=== PATIENT | male | born 1955 | race Caucasian/White ===

== ENCOUNTER 2023-08-01 08:12 | Emergency (ER) | payer MEDICARE, SELFPAY ==
[2023-08-01 08:15] VITALS: BP 173/89; PULSE 54; RESP 17; TEMP 36.7; O2SAT 96; BMI 35.3
--- NOTE | 2023-08-01 08:23 | ED_ITS ---
HPI - Abdominal Pain General: Chief Complaint: Abdominal Pain Stated Complaint: abd pain Time Seen by Provider: 08/01/23 08:18 Source: patient Mode of arrival: ambulatory History of Present Illness: 67-year-old male who presents to the emergency room with left lower quadrant abdominal pain has been going on for the last several days. He has been nauseated. At one point he had not been having a bowel movement he took some laxatives had a large bowel movement seem to improve he had some loose stools after that. He has not had any fever sweats or chills no hematochezia. No vomiting or diarrhea. MD elicited complaint: abdominal pain Onset (ago): day(s) (5) Location: LLQ Severity: mild Quality: cramping Radiation: none Exacerbating factors: nothing Relieving factors: nothing Associated Symptoms: Denies anorexia, belching, bloating, change in bowel habits, change in stool character, chills, coffee ground emesis, constipation, GI cramping, diarrhea, dyspepsia, dysuria, excessive flatus, fever(s), heartburn, hematochezia, hematuria, hematemesis, fecal incontinence, loose stools, melena, nausea, poor appetite, syncope and vomiting Review of Systems Const: Denies: fever(s) or chills Card: Denies: chest pain or syncope Resp: Denies: dyspnea GI: Denies: abdominal pain, nausea, vomiting, hematemesis, coffee ground emesis, heartburn, diarrhea, constipation, bloating, GI cramping, belching, excessive flatus, fecal incontinence, change in bowel habits, change in stool character, hematochezia or melena : Denies: dysuria, urinary frequency, urinary urgency or hematuria Musc: Denies: neck pain or back pain Skin/Breast: Denies: rash Physical Exam Const: GENERAL APPEARANCE: cooperative and comfortable ORIENTATION/CONSCIOUSNESS: Yes awake, Yes oriented to person, Yes oriented to place and Yes oriented to time HENMT: COMMON NORMALS: normocephalic, atraumatic and hearing grossly normal bilaterally HEAD & SCALP: normocephalic and atraumatic Resp: COMMON NORMALS: normal respiratory effort, No retractions, No use of accessory muscles and clear to auscultation bilaterally AUSCULTATION: clear to auscultation bilaterally Cardio: COMMON NORMALS: regular rate, regular rhythm and No murmurs present (Cardio) RATE: regular rate RHYTHM: regular rhythm GI: COMMON NORMALS: Soft to palpation and No hepatosplenomegaly present AUSCULTATION: Yes normoactive bowel sounds PALPATION: Yes Soft to palpation, No Tenderness to palpation present (GI), No Guarding due to palpation present (GI) and Yes No hepatosplenomegaly present Extremity: COMMON NORMALS: normal to inspection, capillary refill normal, no clubbing, cyanosis or edema, no calf tenderness and no pedal edema Neuro: SENSORIUM/ORIENTATION: Yes oriented to person, Yes oriented to place and Yes oriented to time Skin: COMMON NORMALS: no rashes or lesions noted GENERAL SKIN EXAM: no rashes or lesions noted Course Vital Signs: Vital signs: Vital Signs Temperature 98.1 F 08/01/23 08:15 Pulse Rate 54 L 08/01/23 08:15 Respiratory Rate 17 08/01/23 08:15 Blood Pressure 173/89 08/01/23 08:15 Pulse Oximetry 96 08/01/23 08:15 MDM - Abdominal Pain Medical Decision Making Initial evaluation suspected diverticulitis however his white count is not significantly elevated and he has notable microscopic hematuria CT renal stone protocol done showed a 4.5 mm stone near the UVJ junction. Discussed with the patient will strain urine start Flomax hydrocodone for pain follow-up with urology return if pain uncontrolled Differential Diagnosis Likely abdominal pain, calculus of kidney, constipation, diverticulitis, gastroenteritis and small bowel obstruction Medical Records I reviewed the patient's medical records. Lab Data I reviewed the patient's lab results. 08/01/23 08:30 08/01/23 08:30 Labs/Radiology: Laboratory Results WBC 7.66 10^3/uL (3.29-11.43) 08/01/23 08:30 RBC 4.57 10^6/uL (3.85-5.65) 08/01/23 08:30 Hgb 14.40 g/dL (11.27-16.99) 08/01/23 08:30 Hct 44.3 % (37-53) 08/01/23 08:30 MCV 96.9 fl (82-101) 08/01/23 08:30 MCH 31.5 pg (27-33) 08/01/23 08:30 MCHC 32.5 g/dL (30-55) 08/01/23 08:30 RDW 13.4 % (12.1-15.1) 08/01/23 08:30 Plt Count 167 10^3/cmm (157-399) 08/01/23 08:30 MPV 10.8 fL (7.4-10.4) H 08/01/23 08:30 Neut % (Auto) 61.4 % 08/01/23 08:30 Lymph % (Auto) 25.3 % 08/01/23 08:30 Wells % (Auto) 10.8 % 08/01/23 08:30 Eos % (Auto) 1.7 % 08/01/23 08:30 Baso % (Auto) 0.5 % 08/01/23 08:30 Neut # (Auto) 4.70 10^3/uL (1.8-7.7) 08/01/23 08:30 Lymph # (Auto) 1.9 10^3/uL (0.8-4.8) 08/01/23 08:30 Wells # (Auto) 0.8 10^3/uL (0.2-0.9) 08/01/23 08:30 Eos # (Auto) 0.1 10^3/uL (0.0-0.8) 08/01/23 08:30 Baso # (Auto) 0.0 10^3/uL (0.0-0.1) 08/01/23 08:30 Nucleated RBC % (auto) 0 % 08/01/23 08:30 Nucleated RBCs # 0.0 /100WBC 08/01/23 08:30 Sodium 140 mmol/L (136-145) 08/01/23 08:30 Potassium 4.4 mmol/L (3.5-5.1) 08/01/23 08:30 Chloride 105 mmol/L (98-107) 08/01/23 08:30 Carbon Dioxide 24 mmol/L (22-29) 08/01/23 08:30 Anion Gap 15.4 (5-19) 08/01/23 08:30 BUN 17 mg/dL (8-23) 08/01/23 08:30 Creatinine 1.4 mg/dL (0.7-1.2) H 08/01/23 08:30 GFR Calculation 50.7 mL/min (90-130) L 08/01/23 08:30 Glucose 110 mg/dL (65-115) 08/01/23 08:30 Calculated Osmolality 292 mOsm/kg (285-295) 08/01/23 08:30 Calcium 9.3 mg/dL (8.5-10.5) 08/01/23 08:30 Total Bilirubin 0.5 mg/dL (0.15-1.2) 08/01/23 08:30 AST 27 U/L (0-40) 08/01/23 08:30 ALT 26 U/L (0-41) 08/01/23 08:30 Alkaline Phosphatase 112 U/L (40-130) 08/01/23 08:30 Total Protein 6.9 g/dL (6.6-8.7) 08/01/23 08:30 Albumin 4.0 g/dL (3.5-5.2) 08/01/23 08:30 Globulin 2.9 g/dL (1.3-4.6) 08/01/23 08:30 Lipase 13 U/L (13-60) 08/01/23 08:30 Urine Color Yellow (Yellow) 08/01/23 08:58 Urine Appearance Clear (CLEAR) 08/01/23 08:58 Urine pH 6 (5-7) 08/01/23 08:58 Ur Specific [place] 1.020 (1.005-1.030) 08/01/23 08:58 Urine Protein Neg (Negative) 08/01/23 08:58 Urine Glucose (UA) Norm (Normal) 08/01/23 08:58 Urine Ketones 1+ (Negative) H 08/01/23 08:58 Urine Blood 2+ (Negative) H 08/01/23 08:58 Urine Nitrate Negative (Negative) 08/01/23 08:58 Urine Bilirubin Neg (Negative) 08/01/23 08:58 Urine Urobilinogen Norm mg/dL (Negative) 08/01/23 08:58 Ur Leukocyte Esterase Negative (Negative) 08/01/23 08:58 Urine RBC 10-15 /hpf (0-2) H 08/01/23 08:58 Urine WBC 0-4 /hpf (0-5) H 08/01/23 08:58 Ur Squamous Epith Cells 0-4 /hpf (0-5) H 08/01/23 08:58 Amorphous Sediment Not Reportable 08/01/23 08:58 Urine Bacteria Trace /hpf (NONE) 08/01/23 08:58 All radiology interpretation(s) finalized by discharge Discharge Plan Discharge Patient Disposition: Home Clinical Impression: Calculus of kidney Condition: Stable Prescriptions: New hydrocodone-acetaminophen 5-325 mg tablet 1 tab PO Q6H PRN (Reason: pain) Qty: 20 0RF ondansetron HCl 4 mg tablet 4 mg PO Q6H PRN (Reason: nausea and vomiting) Qty: 20 0RF Flomax 0.4 mg capsule 0.4 mg PO DAILY Qty: 30 0RF No Action lisinopril 20 mg tablet 20 mg PO DAILY allopurinol 300 mg tablet 300 mg PO DAILY rosuvastatin 10 mg tablet 10 mg PO DAILY Discharge Orders: Discharge ED (Routine); Ordered 08/01/23 Ordered By: Ridge Jackson Discharge Diet: Usual diet Discharge Activity: Resume usual activity Patient Instructions: Kidney Stones (ED), How to Strain Your Urine (ED), Opioid Safety, Pain Management Activity Restrictions/Additional Instructions: Thank you for choosing [facility] for your healthcare needs today. Please realize this is an emergency room and that we are providing you with a medical screening exam and this may not be complete and all inclusive of all the testing and or work up that you may need to determine your ailment or severity of your illness. It is very important that you follow up as instructed or that you return to the Emergency Department should you have concerns or if your condition changes or worsens in any way. Strain urine to catch stone collect for the lab for analysis. Case management will follow up with a appointment with urology for you. If pain is uncontrolled return to the emergency room Coding Level of Care Code ED Electronics Technician Apprentice for Mariah Gaitan
[2023-08-01] MEDS: sodium chloride 0.9% 1,000 ML 999 ML IV (08:45)
[2023-08-01] MEDS: ondansetron 2 mg/ML SDV 2 mL 4 MG IVP (08:45)
[2023-08-01 08:48] LABS: Basophils % 0.5 %; Eosinophils # 0.1 10^3/uL (0.0-0.8); Eosinophils % 1.7 %; Hematocrit 44.3 % (37-53); Lymphocytes # 1.9 10^3/uL (0.8-4.8); Lymphocytes % 25.3 %; Mean Corpuscular HGB Conc 32.5 g/dL (30-55); Mean Corpuscular Hemoglobin 31.5 pg (27-33); Mean Corpuscular Volume 96.9 fl (82-101); Mean Platelet Volume 10.8 fL (7.4-10.4); Monocytes # 0.8 10^3/uL (0.2-0.9); Monocytes % 10.8 %; Neutrophils % 61.4 %; Nucleated Red Blood Cells % 0 %; Platelet Count 167 10^3/cmm (157-399); Red Blood Count 4.57 10^6/uL (3.85-5.65); Red Cell Distribution Width 13.4 % (12.1-15.1); White Blood Count 7.66 10^3/uL (3.29-11.43)
[2023-08-01 08:59] LABS: Alanine Aminotransferase 26 U/L (0-41); Alkaline Phosphatase 112 U/L (40-130); Anion Gap 15.4 (5-19); Aspartate Amino Transferase 27 U/L (0-40); Blood Urea Nitrogen 17 mg/dL (8-23); Calcium 9.3 mg/dL (8.5-10.5); Carbon Dioxide 24 mmol/L (22-29); Chloride 105 mmol/L (98-107); Globulin 2.9 g/dL (1.3-4.6); Glomerular Filtration Rate 50.7 mL/min (90-130); Glucose 110 mg/dL (65-115); Lipase 13 U/L (13-60); Osmolality Calculated 292 mOsm/kg (285-295); Potassium 4.4 mmol/L (3.5-5.1); Sodium 140 mmol/L (136-145); Total Bilirubin 0.5 mg/dL (0.15-1.2); Total Protein 6.9 g/dL (6.6-8.7)
[2023-08-01 09:16] LABS: Add Urine Microscopic? YES; Bilirubin Urine Neg (Negative); Blood Urine 2+ (Negative); Glucose Urine UA Norm (Normal); Ketones Urine 1+ (Negative); Leukocyte Esterase Urine Negative (Negative); Nitrate Urine Negative (Negative); Protein Urine Neg (Negative); Urine Appearance Clear (CLEAR); Urine Color Yellow (Yellow); Urobilinogen Urine Norm (Negative); pH Urine 6 (5-7)
[2023-08-01 09:24] LABS: Add Urine Culture? Yes; Bacteria Urine TRACE /hpf; Squamous Epithelial Cell Urine 0-4 /hpf (0-5); WBC Urine 0-4 /hpf (0-5)
--- NOTE | 2023-08-01 09:26 | CT_ITS ---
WS: [id number] CT ABDOMEN PELVIS TECHNIQUE: Noncontrast CT of the abdomen and pelvis with coronal and sagittal reformatted images. CLINICAL INFORMATION: flank pain COMPARISON: DLP: 1262.[address] scans at [facility] use at least one of these dose optimization techniques: automated e xposure control; mA and/or kV adjustment per patient size (includes targeted exams where dose is matc hed to clinical indication); or iterative reconstruction. FINDINGS: 4.5 mm obstructing calculus just proximal to the LEFT UVJ. Mild LEFT hydronephrosis and ureterectas is. Inflammatory stranding and edema but the LEFT kidney and LEFT ureter. No obstructing RIGHT renal or ureteral calculi. Small bilateral renal cysts. Cardiomegaly. Bibasilar atelectasis. Noncontrast liver is normal. Cholecystectomy clips. Normal GE junction. Normal spleen. N oncontrast pancreas is normal. Adrenal glands are normal. Cholecystectomy clips. Sigmoid diverticulosis. IMPRESSION: 1. 4.5 mm obstructing calculus just proximal to the LEFT UVJ. 2. Mild LEFT hydronephrosis and ureterectasis. 3. Inflammatory stranding and edema about the LEFT kidney and LEFT ureter. Notified Ridge Jackson DO at 08/01/2023 10:03 AM.
--- NOTE | 2023-08-06 10:19 | DCPLANNER ---
Called and spoke with Patient Rafa he would like [facility]- Sent referral request to [facility] Fax- [phone]
== END 2023-08-01 10:22 | disposition home or self-care (01) ==
PROVIDERS: Emergency Provider Family Medicine
DX: N20.0 Calculus of kidney (principal)
CPT/HCPCS: 36415; 74176; 80053; 81001; 83690; 85025; 87086; 96374; 99284; J2405; J7030